=== PATIENT | female | born 1960 ===

== ENCOUNTER 2017-05-18 14:57 | Emergency (ER) | payer BC ==
[2017-05-18 15:08] VITALS: BMI 30.7
[2017-05-18 15:10] VITALS: TEMP 98.9
[2017-05-18] MEDS ORDERED: Sodium Chloride 0.9% 1,000 ML IV STA (15:31)
--- NOTE | 2017-05-18 15:35 | ED PDOC ---
Arrival/HPI - General Chief Complaint: GI Problem Time Seen by Provider: 05/18/17 15:14 Historian: Patient - History of Present Illness Narrative History of Present Illness (Text): 05/18/17 15:31 56yo female with PMhx of NIDDM and hypertension present with 2days history of nausea, diarrhea and dyspepsia. Notes vomiting was last night and she had multiple episodes of diarrhea today. She denies abdominal pain, chest pain, sick contact, travel, melena, hematemesis, any other complaint. Past Medical History - Provider Review Nursing Documentation Reviewed: Yes - Infectious Disease Hx of Infectious Diseases: None - Tetanus Immunization Tetanus Immunization: Unknown - Cardiac Hx Cardiac Disorders: Yes Hx Hypertension: Yes Other/Comment: PALPTATIONS - Pulmonary Hx Respiratory Disorders: Yes Hx Asthma: Yes - Neurological Hx Neurological Disorder: No - HEENT Hx HEENT Disorder: No - Renal Hx Renal Disorder: No - Endocrine/Metabolic Hx Endocrine Disorders: Yes Hx Diabetes Mellitus Type 2: Yes - Hematological/Oncological Hx Blood Disorders: No - Integumentary Hx Dermatological Disorder: No - Musculoskeletal/Rheumatological Hx Musculoskeletal Disorders: No Hx Falls: No - Gastrointestinal Hx Gastrointestinal Disorders: No - Genitourinary/Gynecological Hx Genitourinary Disorders: No Other/Comment: BREAST IMPLANTS - Psychiatric Hx Psychophysiologic Disorder: No Hx Depression: No Hx Emotional Abuse: No Hx Physical Abuse: No Hx Substance Use: No - Surgical History Hx Appendectomy: Yes Hx Section: Yes (x3) Hx Cholecystectomy: Yes - Anesthesia Hx Anesthesia: Yes Hx Anesthesia Reactions: No Hx Malignant Hyperthermia: No - Suicidal Assessment Feels Threatened In Home Enviroment: No Family/Social History - Physician Review Nursing Documentation Reviewed: Yes Family/Social History: Unknown Family HX Smoking Status: Never Smoked Hx Alcohol Use: No Hx Substance Use: No Hx Substance Use Treatment: No Allergies/Home Meds Allergies/Adverse Reactions: Allergies No Known Allergies Allergy (Verified 06/15/16 12:23) Home Medications: Home Meds Medication Instructions Recorded Confirmed Atorvastatin Calcium [Lipitor] 10 mg PO DAILY 09/07/13 05/18/17 Liraglutide [Victoza 2-Sudheer] 6 mg SC .ONCE PER WEEK 09/07/13 05/18/17 Metformin HCl 1,000 mg PO BID 09/07/13 05/18/17 Metoprolol Succinate XL [Toprol XL] 25 mg PO BID 06/15/16 05/18/17 Dicyclomine [Bentyl] 1 tab PO BID 05/18/17 05/18/17 Esomeprazole Magnesium [Nexium] 1 tab PO DAILY 05/18/17 05/18/17 Valsartan [Diovan] 160 tab PO DAILY 05/18/17 05/18/17 Review of Systems - Physician Review All systems were reviewed & negative as marked: Yes - Review of Systems Constitutional: Normal Eyes: Normal ENT: Normal Respiratory: Normal Cardiovascular: Normal Gastrointestinal: Diarrhea, Nausea, Vomiting. absent: Abdominal Pain, Constipation, Hematochezia, Hematemesis Genitourinary Female: Normal Musculoskeletal: Normal Skin: Normal Neurological: Normal Endocrine: Normal Hemo/Lymphatic: Normal Psychiatric: Normal Physical Exam Vital Signs Reviewed: Yes Vital Signs Temp Pulse Resp BP Pulse Ox 05/18/17 15:09 98.9 F 76 18 123/82 95 Temperature: Afebrile Blood Pressure: Normal Pulse: Regular Respiratory Rate: Normal Appearance: Positive for: Well-Appearing, Non-Toxic, Comfortable Pain Distress: None Mental Status: Positive for: Alert and Oriented X 3 - Systems Exam Head: Present: Atraumatic, Normocephalic Pupils: Present: PERRL Extroacular Muscles: Present: EOMI Conjunctiva: Present: Normal Mouth: Present: Moist Mucous Membranes Neck: Present: Normal Range of Motion Respiratory/Chest: Present: Clear to Auscultation, Good Air Exchange. No: Respiratory Distress, Accessory Muscle Use Cardiovascular: Present: Regular Rate and Rhythm, Normal S1, S2. No: Murmurs Abdomen: Present: Normal Bowel Sounds, Other (Soft). No: Tenderness, Distention , Peritoneal Signs, Rebound, Guarding, McBurney's Point Tender, Rovsing's Sign Present Back: Present: Normal Inspection Upper Extremity: Present: Normal Inspection. No: Cyanosis, Edema Lower Extremity: Present: Normal Inspection. No: Edema Neurological: Present: GCS=15, CN II-XII Intact, Speech Normal Skin: Present: Warm, Dry, Normal Color. No: Rashes Psychiatric: Present: Alert, Oriented x 3, Normal Insight, Normal Concentration Medical Decision Making ED Course and Treatment: 05/18/17 16:47 PT in ED for stated history. Her PE was benign. she was able to tolerate food this morning. She was treated with zofran and loperamide in ED. Lab was nonspecific. Result was DW the pt. she was advised to follow BRAT diet. Referred to her PMd. Rx of Zofran given. Advised TRT ED for any new or worsening symptoms - Lab Interpretations Lab Results: 05/18/17 16:00 05/18/17 16:00 Lab Results 05/18/17 16:00: Sodium 140, Potassium 3.8, Chloride 107, Carbon Dioxide 17 L, Anion Gap 20, BUN 24 H, Creatinine 0.7, Est GFR ( Amer) > 60, Est GFR ( Non-Af Amer) > 60, Random Glucose 176 H, Calcium 10.3, Total Bilirubin 0.5, AST 41 H, ALT 44, Alkaline Phosphatase 75, Total Protein 8.5 H, Albumin 4.8, Globulin 3.7, Albumin/Globulin Ratio 1.3, Lipase 172 05/18/17 16:00: PT 11.8, INR 1.03, APTT 31.5 05/18/17 16:00: WBC 10.1 D, RBC 5.22, Hgb 15.6, Hct 47.4, MCV 90.8, MCH 29.9, MCHC 32.9, RDW 12.7, Plt Count 323, MPV 10.2, Gran % 51.6, Lymph % (Auto) 37.7 H , [place] % (Auto) 6.5 H, Eos % (Auto) 3.9, Baso % (Auto) 0.3, Gran # 5.21, Lymph # (Auto) 3.8 H, [place] # (Auto) 0.7 H, Eos # (Auto) 0.4, Baso # (Auto) 0.03 05/18/17 15:34: Urine Color Yellow, Urine Appearance Clear, Urine pH 6.0, Ur Specific [place] 1.015, Urine Protein Negative, Urine Glucose (UA) >=1000, Urine Ketones Negative, Urine Blood Negative, Urine Nitrate Negative, Urine Bilirubin Negative, Urine Urobilinogen 0.2, Ur Leukocyte Esterase Negative - Medication Orders Current Medication Orders: Discontinued Medications Famotidine (Pepcid) 20 mg IVP STAT STA Stop: 05/18/17 15:32 Last Admin: 05/18/17 16:01 Dose: 20 mg IVP Administration Document 05/18/17 16:01 HI (Rec: 02/01/18 16:01 [id number] Charges for Administration # of IVP Administrations 1 Sodium Chloride (Sodium Chloride 0.9%) 1,000 mls @ 1,000 mls/hr IV .Q1H STA Stop: 05/18/17 16:30 Last Admin: 05/18/17 16:01 Dose: 1,000 mls/hr eMAR Start Stop Document 05/18/17 16:01 HI (Rec: 05/18/17 16:01 [id number]) Intravenous Solution Start Date 05/18/17 Start Time 16:01 Loperamide HCl (Imodium) 4 mg PO ONCE STA Stop: 05/18/17 15:36 Ondansetron HCl (Zofran Inj) 4 mg IVP STAT STA Stop: 05/18/17 15:32 Last Admin: 05/18/17 16:01 Dose: 4 mg IVP Administration Document 05/18/17 16:01 DC (Rec: 05/18/17 16:01 [id number]) Charges for Administration # of IVP Administrations 1 Disposition/Present on Arrival - Present on Arrival Any Indicators Present on Arrival: No History of DVT/PE: No History of Uncontrolled Diabetes: No Urinary Catheter: No History of Decub. Ulcer: No History Surgical Site Infection Following: None - Disposition Have Diagnosis and Disposition been Completed?: Yes Diagnosis: Vomiting and diarrhea Disposition: HOME/ ROUTINE Disposition Time: 16:50 Patient Plan: Discharge Condition: STABLE Discharge Instructions (ExitCare): Acute Nausea and Vomiting (ED), Acute Diarrhea (ED) Additional Instructions: Follow BRAT diet, banana, plain rice, tea, crackers, apple suace Follow up with your doctor Return to ED for any new or worsening symptoms Prescriptions: Ondansetron ODT [Zofran ODT] 4 mg PO Q6 #6 odt Referrals: [facility] [Outside] - Follow up with primary Forms: [employer] (Mozambican)
[2017-05-18 15:50] LABS: URINE BILIRUBIN NEGATIVE (NEGATIVE); URINE BLOOD NEGATIVE (NEGATIVE); URINE GLUCOSE (UA) >=1000 mg/dL (NEGATIVE); URINE LEUKOCYTE ESTERASE NEGATIVE Leu/uL (NEGATIVE); URINE NITRATE NEGATIVE (NEGATIVE); URINE PROTEIN NEGATIVE mg/dL (<30 mg/dL); URINE UROBILINOGEN 0.2 E.U./dL (<1 E.U./dL)
[2017-05-18 16:17] LABS: URINE APPEARANCE CLEAR (CLEAR); URINE COLOR YELLOW (YELLOW)
[2017-05-18 16:25] LABS: BASO # 0.03 K/mm3 (0.0-2.0); BASO % 0.3 % (0.0-3.0); EOS # 0.4 (0.0-0.7); EOS % 3.9 % (1.5-5.0); GRAN # 5.21 (1.4-6.5); GRAN % 51.6 % (50.0-68.0); HEMOGLOBIN 15.6 g/dL (12.0-16.0); LYMPH # 3.8 (1.2-3.4); LYMPH % 37.7 % (22.0-35.0); MEAN CELL VOLUME 90.8 fl (80.0-105.0); MEAN CORPUSCULAR HEMOGLOBIN 29.9 pg (25.0-35.0); MEAN CORPUSCULAR HGB CONC 32.9 g/dl (31.0-37.0); MEAN PLATELET VOLUME 10.2 fl (7.0-11.0); MONO # 0.7 (0.1-0.6); MONO % 6.5 % (1.0-6.0); RBC 5.22 10^6/uL (3.5-6.1); RED CELL DISTRIBUTION WIDTH 12.7 % (11.5-14.5); WHITE BLOOD COUNT 10.1 10^3/ul (4.5-11.0)
[2017-05-18 16:30] LABS: ALB/GLOB RATIO 1.3 (1.1-1.8); ALBUMIN 4.8 g/dL (3.0-4.8); ALT/SGPT 44 U/L (7-56); AST/SGOT 41 U/L (14-36); BLOOD UREA NITROGEN 24 mg/dL (7-21); CALCIUM 10.3 mg/dL (8.4-10.5); GFR AFRICAN-AMERICAN > 60; GFR NON-AFRICAN AMERICAN > 60; LIPASE 172 U/L (23-300)
[2017-05-18 16:38] LABS: INR 1.03 (0.93-1.08); PARTIAL THROMBOPLASTIN TIME 31.5 Seconds (25.1-36.5); PROTHROMBIN TIME 11.8 SECONDS (9.4-12.5)
[2017-05-18 17:18] VITALS: BP 127/82; PULSE 75; RESP 16; O2SAT 99
== END 2017-05-18 17:10 | disposition home or self-care (01) ==
LOC: ED 14:57
DX: R19.7 Diarrhea, unspecified (principal); R11.2 Nausea with vomiting, unspecified; E11.9 Type 2 diabetes mellitus without complications; I10 Essential (primary) hypertension
CPT/HCPCS: 80053; 81003; 83690; 85025; 85610; 85730; 96374; 96375; 99284; J2405; J7040